=== PATIENT | female | born 1975 | race Asian ===

== ENCOUNTER 2021-10-29 11:39 | Outpatient (CLI) | payer BC | END 2021-10-29 11:40 | disposition home or self-care (01) | LOC: CSHMAMMO 11:39 | PROVIDERS: ATTEND Student in an Organized Health Care Education/Training Program | DX: Z12.31 Encounter for screening mammogram for malignant neoplasm of breast (principal) | CPT/HCPCS: 77063; 77067 ==

== ENCOUNTER 2024-11-22 11:51 | Outpatient (CLI) | payer BC | END 2024-11-22 11:52 | disposition home or self-care (01) | LOC: CSHMAMMO 11:51 | PROVIDERS: ATTEND Obstetrics & Gynecology | DX: Z12.31 Encounter for screening mammogram for malignant neoplasm of breast (principal); R92.1 Mammographic calcification found on diagnostic imaging of breast | CPT/HCPCS: 77063; 77067 ==

== ENCOUNTER 2024-11-26 08:09 | Outpatient (CLI) | payer BC | END 2024-11-26 08:10 | disposition home or self-care (01) | LOC: CSHMAMMO 08:09 | PROVIDERS: ATTEND Obstetrics & Gynecology | DX: R92.1 Mammographic calcification found on diagnostic imaging of breast (principal) | CPT/HCPCS: G0279 ==

== ENCOUNTER 2025-09-09 13:26 | Outpatient (CLI) | payer BC | END 2025-09-09 13:27 | disposition home or self-care (01) | LOC: CSHMAMMO 13:26 | PROVIDERS: ATTEND Surgery | DX: Z86.000 Personal history of in-situ neoplasm of breast (principal); Z98.890 Other specified postprocedural states | CPT/HCPCS: G0279 ==